=== PATIENT | male | born 1990 | race Caucasian/White ===

== ENCOUNTER 2018-03-12 01:52 | Day surgery (SDC) | payer OTHER ==
[2018-03-12] VITALS (9 sets, daily range): BP systolic 120–146; BP diastolic 75–97
[~2018-03-12] VITALS: Ht 170.2 cm; Wt 78.5 kg
[~2018-03-12 01:52] MED LIST: ALUM35SO4 TP; HYDR-4225 PO; KET10 PO; MELO-149 PO
[2018-03-12] MEDS ORDERED: MIDAZOLAM 2 MG/2 ML VIAL IVP PRN (06:00)
[2018-03-12] MEDS ORDERED: FAMOTIDINE 20 MG TAB PO ONE (06:00)
[2018-03-12] MEDS ORDERED: CELECOXIB 200 MG CAP PO ONE (06:00)
[2018-03-12] MEDS ORDERED: CLINDAMYCIN(*) 600 MG/NS 50 ML 50 ML IVPB ONE (06:00)
[2018-03-12] MEDS ORDERED: LIDOCAINE/SOD BICARB 8.4% SYR ID ONE (06:00)
[2018-03-12] MEDS ORDERED: NORMOSOL R SOLN(*) 1000 ML BAG 1,000 ML IV PRN (06:00)
[2018-03-12] MEDS ORDERED: ROPIVACAINE 0.2% 20 ML VIAL ONE (06:15)
[2018-03-12] MEDS ORDERED: ONDANSETRON 4 MG/2 ML VIAL ONE (06:40)
[2018-03-12] MEDS ORDERED: PROPOFOL EMUL(*) 10MG/ML 20 ML 20 ML ONE (06:40)
[2018-03-12] MEDS ORDERED: fentaNYL CITR 250 MCG/5 ML AMP ONE (06:40)
[2018-03-12] MEDS ORDERED: LIDOCAINE MPF 1% 5 ML VIAL ONE (06:40)
[2018-03-12] MEDS ORDERED: DEXAMETHASONE SOD PHOS 10MG/ML ONE (06:40)
[2018-03-12] MEDS ORDERED: KETAMINE HCL 200 MG/20 ML MDV ONE (06:43)
[2018-03-12] MEDS ORDERED: HALOPERIDOL LACT 5 MG/ML VIAL IM ONE (06:49)
[2018-03-12] MEDS ORDERED: KETOROLAC 30 MG/ML VIAL ONE (07:56)
[2018-03-12] MEDS ORDERED: HYDR-4309 PO (08:12)
[2018-03-12] MEDS ORDERED: fentaNYL CITR 100 MCG/2 ML AMP ONE (08:49)
[2018-03-12] MEDS ORDERED: APAP/HYDROCODONE 325/5 TAB ONE (10:08)
--- NOTE | 2018-03-12 17:51 | OPERATIVE REPORT 1 ---
EVENT DATE: March 12, 2018 SURGEON: Delon Estrella MD ANESTHESIOLOGIST: Wing Martins MD ANESTHESIA: General LMA anesthesia. SHIRT FINISHER: MANAV Ortiz PREOPERATIVE DIAGNOSIS Left shoulder posterior and superior labral tear and impingement. POSTOPERATIVE DIAGNOSIS Left shoulder posterior and superior labral tear and impingement. PROCEDURE PERFORMED Left shoulder arthroscopic labral repair in the posterior and superior labrum as well as extensive debridement and bursectomy. FINDINGS Patient had a torn labrum which was amenable for fixation and a significant amount of bursitis up in the subacromial space. ESTIMATED BLOOD LOSS Minimal. DRAINS None. COMPLICATIONS None. IMPLANTS USED [employer] JuggerKnot times two with 1.9 JuggerKnot. SPECIMENS None. TOURNIQUET TIME Not applicable. INDICATIONS AND HISTORY This patient is a 27-year-old male who presented to my clinic for evaluation of left shoulder pain and irritation going on for some time. He continued to have pain and irritation despite conservative management, and so therefore, we got him set up for an MR arthrogram. This showed a posterior labral tear, and so therefore, he continued to have problems and issues associated with, and so he wanted to go ahead and have it fixed today. We talked about there are no guarantees with surgery, and he may continue to have some problems, issues, and stiffness associated with it, and he said he wanted to go ahead with it. The risks and benefits were discussed with the patient, and informed consent was obtained. DESCRIPTION OF PROCEDURE As the patient was brought in the operating room, he and the procedure were both verified. He was placed supine on the operating table and induced and intubated by Anesthesia. The left upper extremity was then prepped and draped in the usual fashion after the patient was turned in the lateral decubitus position, and then a timeout was observed verifying the correct patient and procedure. After making the anterior and posterior portal sites, I was then able to insert the scope posteriorly and do an intra-articular sweep. This was then followed by a diagnostic arthroscopy where there was noted to be a posterior labral tear and some fraying and irritation over the anterior aspect of the joint. I then put in a sizing shaver and debrided some of the labrum itself and then also along the rotator cuff where there was some irritation, but no signs of irene tearing. The biceps anchor appeared pretty good. I then switched portals and viewed from the anterior side and then placed a working portal in the posterior side. I was then able to use the tissue liberator to liberate the tear in this area. There were no signs of problems or issues associated with this once I got it liberated. So therefore, I placed two anchors to repair the tear in the posterior and posterosuperior aspects of the labrum. These were the JuggerKnot anchors which were placed into the glenoid itself, and then utilizing a bird beak, I was able to pass the sutures back behind the posterior aspects of the labrum, then tie them over themselves, and then cut the knots without any difficulty. This then secured the shoulder much better and had less posterior load and shift and also had nice bumper associated with it and good adherence of the labrum to probe. I then went in the subacromial space where I was able to perform a complete bursectomy and a small amount of decompression in this area, and then I performed an extensive debridement between the shoulder joint and here. There were no other signs of problems or tearing within the rotator cuff on this, and so therefore, the instruments were removed. The fluid was drained out of the shoulder, and then the patient was awakened, extubated, and transferred to PACU in stable condition after we closed the portal sites with a Monocryl, then anesthetizing with ropivacaine, and applying a sterile dressing. The patient will be in an abduction sling for about three to four weeks' time, and we will see him back in [place] in two weeks. FELIPE
== END 2018-03-12 09:20 | disposition home or self-care (01) ==
LOC: OR 01:52
PROVIDERS: ATTEND Orthopaedic Surgery
DX: S43.402A Unspecified sprain of left shoulder joint, initial encounter (principal); M75.42 Impingement syndrome of left shoulder
CPT/HCPCS: 29807; A4565; C1713; J1100; J1630; J1885; J2001; J2250; J2405; J2704; J2795; J3010; J3490